=== PATIENT | female | born 1950 | race Caucasian/White ===

== ENCOUNTER 2019-07-20 05:43 | Emergency (ER) | payer BC, OTHER ==
[~2019-07-20] VITALS: Ht 162.6 cm; Wt 65.8 kg
[~2019-07-20 05:43] MED LIST: ALEVE220 M1 PO; ALEVE220 MG PO; APAP500 PO; ASA81BEC PO; BACTRIM DS TAB1 EACH PO; BIO-IDENTICAL HORMON TOP; BIOSIL PO; BIOTIN-D1 GM; BIOTIN10 MG PO; CIPROFLOXACIN500 M1 PO; CO Q-10100 MG PO; COLACE 100 MG100 MG PO; FISH OIL 1,001000 M2 PO; FLAGYL500 MG PO; GARLIC OIL1 EACH PO; KRILL OIL500 MG PO; MACRODANTIN25 MG PO; MULTIVITAMINS1 EAC7 PO; NORCO 10-325 T1 EACH PO; NORCO 5-325 TA1 EACH PO; ONDANSETRON HCL4 M1 PO; OXYCONTIN10 M1 PO; PRILOSEC 20 MG20 MG PO; PROBIOTIC1 EAC1 PO; ULTRAM 50MG TAB50 MG PO; URISTAT95 MG; VALACYCLOVIR500 MG PO; VALIUM5 MG PO; VITAMIN B COMP1 EACH PO; VITAMIN C1000 MG PO; VITAMIN D32000 UNI1 PO; VITAMIN E400 UNIT PO; [UNRECOGNIZED DRUG - OTHER] PO
[2019-07-20 06:18] LABS: ABSOLUTE NEUTROPHILS 2.4 thou/uL (1.4-8.2); BASOPHILS 1.4 % (0.0-2.0); EOSINOPHILS 3.8 % (0.0-3.0); HEMATOCRIT 43.9 % (37.0-47.0); HEMOGLOBIN 14.4 gm/dL (12.0-15.0); LYMPHOCYTES 38.7 % (24.0-44.0); MCH 29.4 pg (26.0-34.0); MCHC 32.7 g/dL (28.0-37.0); MCV 89.9 fL (80.0-100.0); MONOCYTES 7.9 % (1.0-8.0); PLATELET COUNT 245 thou/uL (150-400); POLYS 48.2 % (36.0-66.0); RBC 4.88 mil/uL (4.20-5.00); RDW 14.9 % (10.5-14.5); WBC 4.9 thou/uL (4.0-11.0)
[2019-07-20 06:28] LABS: ANION GAP 7 mmol/L (7-16); BUN 14 mg/dL (7-18); CHLORIDE 107 mmol/L (98-107); CO2 28 mmol/L (21-32); CREATININE 0.8 mg/dL (0.6-1.0); GLUCOSE 101 mg/dL (74-106); POTASSIUM 4.7 mmol/L (3.5-5.1); SODIUM 142 mmol/L (136-145)
[2019-07-20 06:38] LABS: ALBUMIN 3.6 g/dL (3.4-5.0); LIPASE 372 U/L (73-393); SGOT 22 U/L (15-37); SGPT 25 U/L (30-65); TOTAL BILIRUBIN 0.3 mg/dL (<0.1-1.0); TOTAL PROTEIN 7.2 g/dL (6.4-8.2); TROPONIN-I <0.06 ng/mL (<0.06)
[2019-07-20 06:52] LABS: APTT 26.6 Seconds (24.5-32.8); D-DIMER 1.3 ug/mLFEU (0.19-0.50); PROTIME 9.6 Seconds (9.3-11.4)
[2019-07-20 07:22] LABS: URINE BILIRUBIN NEGATIVE (Negative); URINE BLOOD NEGATIVE (Negative); URINE CLARITY CLEAR; URINE COLOR YELLOW; URINE GLUCOSE-RANDOM* NEGATIVE (Negative); URINE KETONES NEGATIVE (Negative); URINE LEUKOCYTES-REFLEX NEGATIVE (Negative); URINE NITRITE-REFLEX NEGATIVE (Negative); URINE PROTEIN (DIPSTICK) NEGATIVE (Negative); URINE SPECIFIC GRAVITY <= 1.005 (1.005-1.035); URINE UROBILINOGEN 0.2 E.U./dl (0.2-1.0)
[2019-07-20] MEDS ORDERED: NAPROSYN500 MG PO (09:05)
[2019-07-20 09:25] VITALS: BP 132/78
--- NOTE | 2019-07-21 14:15 | EKG ---
[place] [address] [facility] [place] [address] ELECTROCARDIOGRAM REPORT Name: MARTY ROBLES JESSY Room #: [facility]ENTER[facility] [id number] ������������������ Admission: 07/20/19 ������������������ Attend Phys: Discharge: 07/20/19 ������������������ Date of : 54 Report #: [id number] ����������������������������������������������������������������� [id number] THIS REPORT FOR: //name// [facility] ED Test Date: 2019-07-20 Test Time: 06:24:17 Pat Name: MARTY ROBLES Department: Room: Gender: F [employer]: KOFI : 1950 Requested By: Silverio Goodman Order Number: [id number] MD: Jeremiah Dennis Measurements Intervals [place] Rate: 69 P: 43 LA: 179 QRS: -11 QRSD: 97 T: 32 QT: 396 QTc: 425 Interpretive Statements Sinus rhythm RSR' in V1 or V2, right VCD Compared to ECG 02/19/2016 05:01:57 No significant change was found Electronically Signed On 07-21-2019 14:14:50 CDT by Jeremiah Dennis [email or web address] ��������������������������������������������� <ELECTRONICALLY SIGNED> ���������������������������������������� By: Jeremiah Dennis MD, [facility] ��������������������������������������������� 07/21/19 1414 3 3 Jeremiah Dennis MD, [facility] /EPI
== END 2019-07-20 09:25 | disposition home or self-care (01) ==
LOC: ER 05:43
PROVIDERS: Emergency Medicine
DX: R09.1 Pleurisy (principal); I31.9 Disease of pericardium, unspecified; K57.90 Diverticulosis of intestine, part unspecified, without perforation or abscess without bleeding; M46.90 Unspecified inflammatory spondylopathy, site unspecified; M54.5 Low back pain; M25.552 Pain in left hip; M25.551 Pain in right hip; G89.29 Other chronic pain; F32.9 Major depressive disorder, single episode, unspecified; F41.9 Anxiety disorder, unspecified; Z86.73 Personal history of transient ischemic attack (TIA), and cerebral infarction without residual deficits; Z90.49 Acquired absence of other specified parts of digestive tract; Z88.8 Allergy status to other drugs, medicaments and biological substances